=== PATIENT | female | born 1980 ===

== ENCOUNTER 2018-02-05 05:48 | Day surgery (SDC) | payer OTHER | END 2018-02-05 12:50 | disposition home or self-care (01) | LOC: CIR.AMB 05:48 | DX: N84.0 Polyp of corpus uteri (principal); N93.8 Other specified abnormal uterine and vaginal bleeding ==

== ENCOUNTER 2020-06-18 06:00 | Day surgery (SDC) | payer OTHER | END 2020-06-18 12:10 | disposition home or self-care (01) | LOC: CIR.AMB 06:00 | PROVIDERS: ATTEND Specialist | DX: D23.4 Other benign neoplasm of skin of scalp and neck (principal); Z20.822 Contact with and (suspected) exposure to COVID-19 ==

== ENCOUNTER 2023-04-27 09:43 | Outpatient (CLI) | payer OTHER | END 2023-04-27 09:44 | disposition home or self-care (01) | LOC: LAB 09:43 | PROVIDERS: ATTEND Internal Medicine Gastroenterology | DX: R97.0 Elevated carcinoembryonic antigen [CEA] (principal) ==

== ENCOUNTER 2023-05-02 08:13 | Outpatient (CLI) | payer OTHER | END 2023-05-02 08:26 | disposition home or self-care (01) | LOC: TOM 08:13 | PROVIDERS: ATTEND Internal Medicine Gastroenterology | DX: R10.9 Unspecified abdominal pain (principal); R70.0 Elevated erythrocyte sedimentation rate; R19.5 Other fecal abnormalities ==